=== PATIENT | female | born 1970 | race Caucasian/White ===

== ENCOUNTER 2020-06-05 04:57 | Day surgery (SDC) | payer OTHER ==
[2020-06-04 09:52] VITALS: BMI 23.8
[2020-06-05 10:57] VITALS: TEMP 97.8
[2020-06-05 11:23] VITALS: PULSE 67
[2020-06-05 11:52] VITALS: BP 118/67
--- NOTE | 2020-06-06 14:31 | PATH ---
Surgical Pathology Report Patient Name: ROJELIO GILLILAND [facility]. Rec. #: [id number] /Age/Gender: 1970 (Age: 49) / F Account: [id number] Location: U-ENDOSCOPY Taken: 06/05/2020 Received: 06/05/2020 Reported: 06/06/2020 Physicians: Deon Moreau D.O. Specimen(s) Received A: ERYTHEMATOUS NODULES OF STOMACH B: ANGULARIS BODY OF STOMACH Clinical History Chest pain unspecified Postoperative diagnosis: Gastritis Final Diagnosis A. STOMACH, ERYTHEMATOUS NODULES, BIOPSY: POLYPOID GASTRIC BODY MUCOSA WITH SEVERE CHRONIC ACTIVE GASTRITIS AND ASSOCIATED LAMINA PROPRIA HEMORRHAGE. IMMUNOHISTOCHEMICAL STAIN FOR H. PYLORI IS POSITIVE (NUMEROUS). B. STOMACH, ANGULARIS/BODY, BIOPSY: GASTRIC BODY MUCOSA WITH SEVERE CHRONIC ACTIVE GASTRITIS. IMMUNOHISTOCHEMICAL STAIN FOR H. PYLORI IS POSITIVE (NUMEROUS). Positive and negative controls (internal if applicable) show appropriate results. Electronically Signed Chel Teresa M.D. Gross Description A. Received in formalin, labeled "erythematous nodule of stomach" are 7 spencer, irregular portions of soft tissue ranging from 0.1-0.3 cm. in greatest dimension. The specimens are submitted in toto in one cassette. B. Received in formalin, labeled "angularis body of stomach" are 5 spencer, irregular portions of soft tissue ranging from 0.2-0.3 cm. in greatest dimension. The specimens are submitted in toto in one cassette. /06/05/2020 saudi/06/05/2020
== END 2020-06-05 12:17 | disposition home or self-care (01) ==
LOC: JASU-ENDO 04:57
PROVIDERS: ATTEND Internal Medicine Gastroenterology
PROC: 0DB68ZX Excision of Stomach, Via Natural or Artificial Opening Endoscopic, Diagnostic (ICD-10-PCS; principal; 2020-06-05 11:00)
DX: K29.50 Unspecified chronic gastritis without bleeding (principal)
CPT/HCPCS: 88305-TC; 88342-TC

== ENCOUNTER 2025-01-24 06:43 | Day surgery (SDC) | payer OTHER ==
[2025-01-23 12:40] VITALS: BMI 22.1
[2025-01-24 12:10] VITALS: RESP 14; TEMP 98.2
[2025-01-24 12:15] VITALS: BP 108/68; PULSE 82
== END 2025-01-24 12:15 | disposition home or self-care (01) ==
LOC: JASU-ENDO 06:43
PROVIDERS: ATTEND Internal Medicine Gastroenterology
PROC: 0DB68ZX Excision of Stomach, Via Natural or Artificial Opening Endoscopic, Diagnostic (ICD-10-PCS; principal; 2025-01-24 11:30)
DX: K29.50 Unspecified chronic gastritis without bleeding (principal)
CPT/HCPCS: 88305-TC; 88342-TC